=== PATIENT | female | born 1945 | race Caucasian/White ===

== ENCOUNTER 2017-08-16 15:22 | Inpatient (IN) | payer MEDICARE ==
--- NOTE | 2017-08-16 16:56 | CT ---
CT BRAIN WITHOUT CONTRAST: Date: 08/16/17 HISTORY: Hematoma to left eye status post fall. Trauma. FINDINGS: Chronic sinusitis left maxillary sinus. Large left periorbital hematoma. The orbits itself appear to be intact. No retrobulbar hematoma. Calvarium appears to be intact. Moderately advance microangiopathic changes. This involves the subcortical and deep white matter and involves the scott radiata bilaterally. No extra-axial hemorrhage. No intra-axial hemorrhage. No midline shift or mass effect. IMPRESSION: 1. No acute post-traumatic sequelae. 2. Chronic left maxillary sinusitis. 3. Left periorbital hematoma. No orbital abnormalities appreciated. No retrobulbar hematoma. Modera tely advanced microangiopathic changes. POS: [facility]
--- NOTE | 2017-08-16 17:00 | CT ---
CT OF THE CERVICAL SPINE: DATE: 08/16/17. PROVIEED CLINICAL HISTORY: Neck pain status post injury. FINDINGS: There is no evidence for fracture or traumatic subluxation. Advanced multilevel cervical degenerati ve changes are seen. There is no evidence for prevertebral soft tissue swelling. The visualized blank ng apices appear clear. IMPRESSION: No evidence for a fracture or traumatic subluxation. POS: [facility]
--- NOTE | 2017-08-16 17:07 | CT ---
CT OF THE FACIAL BONES: DATE: 08/16/17. PROVIDED CLINICAL HISTORY: Facial trauma. FINDINGS: There is complete opacification of the left maxillary sinus. There is thickening of the anterior an d posterior valdez of the maxillary sinus. This is compatible with changes of chronic sinusitis. Th ere is no evidence for fracture. There is left periorbital soft tissue swelling. The globes and ot her orbital contents appear normal. Degenerative changes are seen involving the cervical spine. IMPRESSION: No evidence for fracture. POS: [facility]
--- NOTE | 2017-08-16 17:11 | RAD ---
TWO VIEWS OF THE LEFT TIBIA AND FIBULA: COMPARISON: None. HISTORY: Fall from standing with left leg pain. FINDINGS: Two views of the left tibia/fibula show a comminuted fracture of the proximal aspect of the tibia. No fibula fracture is seen. Soft tissue swelling is seen. There are moderate to severe degenerativ e changes in the left knee joint. IMPRESSION: 1. Comminuted proximal tibia fracture. 2. Moderate to severe left knee osteoarthritis. POS: [facility]
--- NOTE | 2017-08-16 17:53 | RAD ---
PORTABLE CHEST 1 VIEW: Date: 08/16/17 Time: 1742 hours HISTORY: Preoperative evaluation. FINDINGS/IMPRESSION: The heart size is enlarged. The aorta is tortuous. The lungs are well expanded without confluent are as of consolidation, pneumothorax, christina pulmonary edema, or pleural effusions. POS: [facility]
[2017-08-16 18:05] LABS: #Lymphocytes 0.6 thou/uL (1.20-3.40); #Monocytes 0.9 thou/uL (0.11-0.59); #Neutrophils 15.3 thou/uL (1.40-6.50); %Eosinophils 0.1 % (0.0-10.0); %Lymphocytes 3.8 % (21.0-51.0); %Monocytes 5.5 % (0.0-10.0); Hematocrit 45.4 % (36.0-47.0); Red Blood Cell (RBC) Count 4.82 mill/uL (4.20-5.40); White Blood Cell (WBC) Count 16.9 thou/uL (4.8-10.8)
[2017-08-16 18:11] LABS: Prothrombin Time 14.1 SEC (12.0-14.7)
[2017-08-16 18:29] LABS: ALT (SGPT) 16 U/L (8-55); AST (SGOT) 29 U/L (5-34); Alkaline Phosphatase 103 U/L (40-150); Anion Gap 16 mmol/L (10-20); BUN (Urea Nitrogen) 20 mg/dL (9.8-20.1); Bilirubin, Total 0.7 mg/dL (0.2-1.2); Calc. Creatinine Clearance 0 mL/min (70-130); Calcium 9.9 mg/dL (7.8-10.44); Carbon Dioxide 25 mmol/L (23-31); Chloride 101 mmol/L (98-107); Estimated GFR-MDRD 68; Globulin 3.7 g/dL (2.4-3.5); Lipase 17 U/L (8-78); Protein, Total 7.9 g/dL (6.0-8.3)
[2017-08-16] MEDS ORDERED: Sodium Chloride 0.9% 1,000 ML IV SCH (19:14)
[2017-08-16] MEDS ORDERED: Ondansetron ODT 4 MG TAB SL PRN (19:14)
[2017-08-16] MEDS ORDERED: Ondansetron HCl/PF 4 MG/2 ML Vial IVP PRN ×2 (19:14→19:44)
[2017-08-16] MEDS ORDERED: Fleet Enema 133 ML BOT PR PRN (19:44)
[2017-08-16] MEDS ORDERED: Ondansetron ODT 4 MG TAB PO PRN (19:44)
[2017-08-16] MEDS ORDERED: Bisacodyl 10 MG SUPP PR PRN (19:44)
[2017-08-16] MEDS ORDERED: Milk Of Magnesia 30 ML UDCUP PO PRN (19:44)
[2017-08-16] MEDS ORDERED: Ketorolac Tromethamine 30 MG/ML VIAL IVP SCH (21:45)
[2017-08-16 21:57] VITALS: BMI 30.2
[2017-08-16] MEDS: Docusate 100 MG CAP PO SCH (21:58)
[2017-08-16] MEDS: Ketorolac Tromethamine 30 MG/ML VIAL IVP SCH (21:59)
[2017-08-16] MEDS: risperiDONE 0.25 MG TAB PO SCH (21:59)
[2017-08-16] MEDS: traMADol HCl 50 MG TAB PO PRN (22:01)
[2017-08-17] MEDS: Sodium Chloride 0.9% 1,000 ML IV SCH ×2 (00:16→09:16)
[2017-08-17] MEDS: Ketorolac Tromethamine 30 MG/ML VIAL IVP SCH ×3 (00:18→12:50)
--- NOTE | 2017-08-17 02:34 | CON ---
DATE OF CONSULTATION: 08/16/2017 CHIEF COMPLAINT: Left leg pain. HISTORY OF PRESENT ILLNESS: Ms. Gonsalez is a 72-year-old female who has fallen today. She has a long history of orthopedic problems. She has had a knee fusion on the right knee, she reports. Derrell hernandez has had multiple other surgeries. Her knee fusion was done for infection complications. She has been using a walker for mobilization. She lives at home. She fell in her kitchen today after losin g her balance. She landed on her left side. She was unable to ambulate. She was taken to the [facility]. X-rays were obtained which demonstrated a proximal tibia fracture on the left leg . She is currently comfortable. She is talkative. She has a hematoma over her left eye. PAST MEDICAL HISTORY: Hypertension, otherwise she denies active medical problems. PAST SURGICAL HISTORY: Right knee fusion, multiple right knee surgeries related to infection with p atellectomy. PSYCHIATRIC HISTORY: Depression. SOCIAL HISTORY: The patient denies tobacco, alcohol or drug use. ALLERGIES: No known drug allergies. REVIEW OF SYSTEMS: Positive for left leg pain, otherwise negative for chest pain, shortness of viral th and remainder of 10-point review of systems. PHYSICAL EXAMINATION: VITAL SIGNS: Blood pressure is 143/89, pulse 102, respiratory rate 20, temperature is 98.0. GENERAL: She is alert, sitting upright in no apparent distress. HEENT: The patient has a left eye ecchymosis with swelling. RESPIRATORY: Breathing comfortably. ABDOMEN: Obese. MUSCULOSKELETAL: The left leg has venous stasis with thickened skin and dermatitis. She has a stif f knee with the fusion. There is a deformity of the tibia with varus alignment. She is able flex a nd extend the foot and ankle. Pulses poorly palpable. IMAGES: X-rays of the tibia demonstrate a fracture of the tibial metaphysis. The patient has a sev erely arthritic knee. IMPRESSION: Elderly female with a tibia fracture proximal. PLAN: At this point, I think the patient would be a poor surgical candidate. Her skin is in very p oor condition and she has a severely arthritic knee. I think she would best be treated nonoperative ly with a well-padded splint. I discussed this with her. She will likely need correction placeme nt given that she will be poorly mobile. If her pain worsens or alignment worsens, we could conside r converting to surgical treatment; however, I think she would be higher risk for wound complication or infection. She agrees with this plan and wants to proceed with splinting today.
--- NOTE | 2017-08-17 05:49 | HP ---
Montrell Low PA-C, dictating for Montrell Ward M.D. DATE OF ADMISSION: 08/16/2017 ATTENDING PHYSICIAN: Montrell Ward M.D. CONSULTING PHYSICIAN: Dr. Worthy, Orthopedics. CHIEF COMPLAINT: Evaluation, status post fall. HISTORY OF PRESENT ILLNESS: A 72-year-old female who presented to the ED complaining of left leg pa in and hematoma of the left thigh status post fall. She is on Plavix. The patient was in her kitch en when she was reportedly at the table and did not want to wait for her son for help and then got u p towards her walker and she reports getting wobbly and fell, striking the floor. The patient repor nazanin pain in the left leg from the left thigh. She denied any seizures, able to recall the events pr dede vividly. She denied any chest pain, shortness of breath or dizziness prior to or during the fa ll. REVIEW OF SYSTEMS: All 10 systems were reviewed other than stated in HPI were negative. PAST MEDICAL HISTORY: Includes hypertension, coronary artery disease. PAST SURGICAL HISTORY: Includes right kneecap removal. PSYCHIATRIC HISTORY: Includes depression. SOCIAL HISTORY: She denies any alcohol, drug or smoking history. She does live at home with her so n, but he is not 24 hours in house, so she is alone a large portion of the day. RADIOLOGIC FINDINGS: Showed displaced fracture in comminuted proximal tibia, lower extremity. Head CT and C-spine were negative. PHYSICAL EXAMINATION: VITAL SIGNS: Blood pressure 153/98, heart rate 95, respiratory rate 20, O2 saturation 96% on room a ir. HEENT: Normocephalic, left periorbital ecchymosis and swelling. Pupils equal, round, and reactive. Visual acuity is intact. NECK: No JVD, no masses. Trachea is midline. No cervical spine tenderness. RESPIRATORY: Chest wall is nontender, clear bilaterally via auscultation. CARDIOVASCULAR: S1, S2 regular rate and rhythm. ABDOMEN: Soft, nontender, nondistended, obese. PELVIS: Intact. EXTREMITIES: Tenderness to the left lower leg. Surgery scar to right knee. Lower strength intact. Pulses intact. No edema. NEUROLOGIC: GCS of 15. Cranial nerves intact. SKIN: Warm and dry. LABORATORY DATA: Laboratory results are pending. Radiologic findings as stated above. ASSESSMENT: 1. Status post fall. 2. History of hypertension. 3. History of coronary artery disease. 4. History of depression. 5. Left tibial, proximal, comminuted displaced fracture. PLAN: Orthopedic consultation for left lower leg. The patient will be placed on knee immobilizer a t that time. The patient will optimize pain medication should be n.p.o. after midnight with IV flui ds for possible surgery tomorrow. Dr. Worthy will reevaluate at that time, we will optimize her medically. Initiate deep venous thrombosis and gastritis prophylaxis. The patient has been discuss ed with Dr. Ward at time of dictation and agrees with the above plan.
[2017-08-17] MEDS: Nebivolol HCl 5 MG TAB PO SCH (06:35)
[2017-08-17] MEDS: Lisinopril 10 MG TAB PO SCH (09:12)
[2017-08-17] MEDS: risperiDONE 0.25 MG TAB PO SCH ×2 (09:12→21:21)
[2017-08-17] MEDS: Docusate 100 MG CAP PO SCH ×2 (09:12→21:21)
[2017-08-17] MEDS ORDERED: Chloraseptic Spray 180 ml Bottle PO PRN (13:23)
[2017-08-17] MEDS ORDERED: Ibuprofen 600 MG TAB PO PRN (13:23)
--- NOTE | 2017-08-17 13:45 | RAD ---
LEFT TIBIA FIBULA 2 VIEWS: HISTORY: Splint application, check position of fracture. COMPARISON: Tibia and fibula radiographs of prior day. FINDINGS: Improved alignment post splint of the tibial fracture. Severe degenerative change of the knee joint . IMPRESSION: Good alignment post splinting. POS: [facility]
[2017-08-17] MEDS ORDERED: RISPERIDONE 0.5 MG PO SCH (21:00)
[2017-08-17] MEDS: Atorvastatin Calcium 10 MG TAB PO SCH ×2 (21:20→21:22)
[2017-08-17] MEDS: traMADol HCl 50 MG TAB PO PRN (23:25)
--- NOTE | 2017-08-18 00:54 | PRG-2 ---
DATE OF SERVICE: 08/17/2017 DATE OF ADMISSION: 08/16/2017 SUBJECTIVE: A 72-year-old female with status post fall, found to have a comminuted left tibia fract ure and left hematoma. She reports doing well today. Reports pain has been well controlled at this time. She says she is not eating breakfast today and it has been ordered on its way. She has yet to get up and work with PT and OT. Denies any chest pain, fevers, or chills. Denies any other conc erns or complaints at this time. OBJECTIVE: VITAL SIGNS: Temperature 98.3, pulse 79, respirations 16, O2 sat is 93% on room air, blood pressure is 124/69. GENERAL: She is alert and oriented x3, in no acute distress. HEENT: Normocephalic. She has left periorbital ecchymosis and swelling. RESPIRATORY: Chest wall was nontender. Clear to auscultation bilaterally. No wheeze or crackles. Symmetric chest expansion, nonlabored. CARDIOVASCULAR: Regular rate and rhythm. No murmurs or gallops. ABDOMEN: Soft, nontender, nondistended. EXTREMITIES: Tenderness to left lower leg. Pulses are intact. Moves all extremities upper and low er bilaterally. NEUROLOGIC: No focal neuro deficit. GCS of 15. LABORATORY DATA: No new labs to review today. IMAGING: Tibia and fibula x-ray on 08/17/2017 shows good alignment, post-splinting. ASSESSMENT: 1. Status post fall. 2. History of hypertension. 3. History of coronary artery disease. 4. History of depression. 5. Left tibial proximal comminuted displaced fracture. PLAN: Per Orthopedic Surgery, patient is not a good candidate for surgery. They have splinted and x-ray shows that it has been stabilized. Plan is to consult for shelter or assisted [place] for her. She is agreed to this plan. Now, we will just need to work with case management an d work with insurance to get this approved and we will have her work with PT and OT and await their assessment. We will continue to manage pain and adjust pain medication as needed. We will check la bs as needed and replace electrolytes as needed. The patient was seen and plan of care was discusse d with Dr. Dino Viera.
[2017-08-18] MEDS: Nebivolol HCl 5 MG TAB PO SCH (08:34)
[2017-08-18] MEDS: Docusate 100 MG CAP PO SCH ×2 (08:34→19:32)
[2017-08-18] MEDS: risperiDONE 0.25 MG TAB PO SCH ×2 (08:34→19:31)
[2017-08-18] MEDS: Lisinopril 10 MG TAB PO SCH (08:34)
[2017-08-18] MEDS: traMADol HCl 50 MG TAB PO PRN ×2 (08:35→17:49)
[2017-08-18] MEDS: Acetaminophen 500 MG TAB PO PRN ×2 (13:31→19:35)
--- NOTE | 2017-08-18 16:29 | PRG ---
DATE OF SERVICE: 08/18/2017 SUBJECTIVE: The patient is hospital day #3, status post ground level fall in which she sustained a comminuted left tibia fracture. The patient was evaluated by Orthopedics, and due to her comorbidit ies, it was felt was not a good surgical candidate, so the patient was placed in a hinged knee brace and will be working with physical and occupational therapy. She is currently awaiting rehab placem ent. This morning, she has no complaints. She states that her pain is controlled with Tylenol and Motrin. She is tolerating a diet. OBJECTIVE: VITAL SIGNS: Temperature is 98.0, heart rate 76, blood pressure 103/63, respirations 20, oxygen sat uration 94% on room air. HEENT: Unremarkable. LUNGS: Clear to auscultation bilaterally. HEART: Regular rate and rhythm. ABDOMEN: Soft, flat, nontender with active bowel sounds. EXTREMITIES: Neurovascularly intact x4. LABORATORY DATA: No laboratory or radiographs today. ASSESSMENT AND PLAN: 1. Status post ground-level fall. 2. Proximal left tibia fracture, undergoing nonoperative management. Plan will be to continue pain management, physical and occupational therapy, pain control and await rehabilitation placement.
[2017-08-18] MEDS: Atorvastatin Calcium 10 MG TAB PO SCH (19:32)
[2017-08-19] MEDS: Acetaminophen 500 MG TAB PO PRN (06:50)
[2017-08-19] MEDS: Nebivolol HCl 5 MG TAB PO SCH (08:06)
[2017-08-19] MEDS: risperiDONE 0.25 MG TAB PO SCH ×2 (08:06→21:21)
[2017-08-19] MEDS: Lisinopril 10 MG TAB PO SCH (08:07)
[2017-08-19] MEDS: traMADol HCl 50 MG TAB PO PRN ×2 (08:07→18:18)
[2017-08-19] MEDS: Docusate 100 MG CAP PO SCH ×2 (08:07→21:21)
--- NOTE | 2017-08-19 16:54 | PRG ---
DATE OF SERVICE: 08/19/2017 SUBJECTIVE: The patient is hospital day #4 status post ground level fall in which she sustained a c omminuted left tibia fracture. The patient was evaluated by Orthopedics and it was determined that she was a nonoperative candidate. The patient started working with Physical Therapy yesterday and i s awaiting placement to rehabilitation facility. The patient states that her pain is controlled and she is tolerating a diet. OBJECTIVE: VITAL SIGNS: Temperature is 98.0, heart rate 62, blood pressure 119/66, respirations 18, and oxygen saturation 91% on room air. HEENT: Unremarkable. LUNGS: Clear to auscultation with moderate inspiratory and expiratory effort. HEART: Regular rate and rhythm. ABDOMEN: Soft, flat, and nontender with active bowel sounds. EXTREMITIES: Neurovascularly intact x4. ASSESSMENT AND PLAN: Status post ground level fall in which she sustained a left proximal tibia fra cture that is being managed nonoperatively. 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
[2017-08-19] MEDS ORDERED: Atorvastatin Calcium 10 MG TAB PO SCH (21:30)
[2017-08-20] MEDS: traMADol HCl 50 MG TAB PO PRN ×2 (03:08→12:25)
[2017-08-20 07:52] VITALS: TEMP 98.1
[2017-08-20] MEDS: Nebivolol HCl 5 MG TAB PO SCH ×2 (08:58→08:59)
[2017-08-20] MEDS: Docusate 100 MG CAP PO SCH (08:59)
[2017-08-20] MEDS: risperiDONE 0.25 MG TAB PO SCH (08:59)
[2017-08-20] MEDS: Lisinopril 10 MG TAB PO SCH (08:59)
[2017-08-20 12:22] VITALS: BP 143/76
--- NOTE | 2017-08-20 13:00 | DIS-2 ---
DATE OF ADMISSION: 08/16/2017 DATE OF DISCHARGE: 08/20/2017 RESIDENT: Dr. Ramona Jordan. ATTENDING PHYSICIAN: Dr. Dino Viera. CONSULTATIONS: 1. Orthopedic Surgery, Dr. Alex Worthy. 2. Case management. PROCEDURES: 1. Cervical spine CT: No evidence for fracture or traumatic subluxation. 2. Facial bones CT: No evidence for fracture. 3. Tibia/fibula x-ray: Comminuted proximal tibial fracture, moderate to severe left knee osteoarthritis. 4. Brain CT: No acute post-traumatic sequelae. Chronic left maxillary sinusitis. Left periorbital hematoma. No orbital abnormalities appreciated. No retrobulbar hematoma. Moderately advanced microangiopathic changes. 5. Chest x-ray: The heart size is enlarged. The aorta is tortuous. The lungs are well expanded without confluent areas of consolidation, pneumothorax, or christina pulmonary edema, or pleural effusions. 6. Tibia/fibula x-ray: Status post splint application to check position of fracture. There is good alignment post-splinting. DISCHARGE MEDICATIONS: 1. Acetaminophen 500 mg tablet 1000 mg p.o. q.6 hours as needed for pain. 2. Aspirin 81 mg p.o. daily. 3. Pravastatin sodium 40 mg p.o. daily. 4. Ibuprofen 600 mg p.o. q.8 h. for pain. 5. Tramadol 50 mg p.o. q.6 hours as needed for moderate to severe pain. 6. Clopidogrel bisulfate 75 mg p.o. daily. 7. Furosemide 20 mg p.o. daily. 8. Lisinopril 10 mg p.o. daily. 9. Nebivolol 5 mg p.o. daily. 10. Risperidone 0.5 mg p.o. b.i.d. DISCONTINUED MEDICATIONS: None. HISTORY OF PRESENT ILLNESS/HOSPITAL COURSE: This is a 72-year-old female who presented to the Emergency Department complaining of left leg pain and hematoma of the left thigh, status post fall. Patient was on Plavix. She was in her kitchen when she reportedly did not want to wait for her son to help get her up , so she started moving towards her walker, she got wobbly and fell, striking the floor. The patient reported pain in the left leg in the area of the thigh. She denied any seizures and was able to recall the events vividly. She denied any chest pain, shortness of breath or dizziness prior to or during the fall. Orthopedic Surgery was consulted for evaluation and management of left tibial comminuted fracture as evidenced by a femur/tibia x-ray. The patient was placed in a knee immobilizer and pain control was initiated. Dr. Worthy saw the patient on the day of admission. Upon evaluation, he did not think that the patient was a good surgical candidate as her skin is in very poor condition. Dr. Worthy recommended treatment nonoperatively with a well- padded splint. This was discussed with the patient since the patient will be poorly mobile. It was recommended that she be placed in a short-term nursing facility for maximum recovery. The patient was splinted by Dr. oWrthy, and the alignment of the splint was evaluated via a left tib/fib x-ray. It showed good splinting alignment. The patient remained stable throughout the course of her hospital stay. Her pain was adequately controlled using tramadol, Tylenol and ibuprofen. Patient did not have any complications. She did not require intervention during her hospital stay. Upon reviewing the records, it looks like her pain remained below 5 after the first hospital day. The patient's labs on admission were stable. She did have an elevated white count of 16.9. Otherwise, remainder of the CBC and CMP were within normal limits with the exception of an elevated glucose at 134. PT was 14.1, INR 1.1 and PTT 28. Case management was consulted and they helped on initiating and finding placement for the patient at [facility] where patient will continue with therapy to maximize recovery. She will receive physical therapy and occupational therapy at this facility. Patient is in understanding of this plan and is agreeable. DISCHARGE INSTRUCTIONS: 1. Location: [facility] in [place], [place]. 2. Diet: No restrictions. 3. Activity: As tolerated; orthopedic limitations, patient has left leg splint and decreased mobility secondary to left proximal tibial comminuted fracture. 4. Followup: The patient will be placed in a [place] [facility] at [facility] where she will receive physical therapy and occupational therapy. She will also be seen by physicians at that facility that will help to maximize her care. She will need to follow with her primary care physician, Dr. Zach Woodruff, after discharge from [place] [facility]. Per Dr. Worthy, he would like to see the patient back for reevaluation in 2-3 weeks. MICHELLE
== END 2017-08-20 12:38 | DRG 563 ==
LOC: ERS 15:22 → SJJU 17:20
PROVIDERS: ADMIT Specialist; ATTEND Specialist
PROC: 2W3RX1Z Immobilization of Left Lower Leg using Splint (ICD-10-PCS; principal; 2017-08-16)
DX: S82.102A Unspecified fracture of upper end of left tibia, initial encounter for closed fracture (principal); I10 Essential (primary) hypertension; L30.9 Dermatitis, unspecified; W19.XXXA Unspecified fall, initial encounter; Y92.000 Kitchen of unspecified non-institutional (private) residence as the place of occurrence of the external cause
CPT/HCPCS: 36415; 70450; 70486; 71010; 72125; 80053; 83690; 85025; 85610; 85730; 86850; 86900; 86901; 93005; A4216; G0390; G8978-GP-CM; G8979-GP-CL; G8987-GO-CL; G8988-GO-CJ; J1885

== ENCOUNTER 2018-07-25 18:39 | Emergency (ER) | payer SELFPAY ==
[2018-07-25 19:46] LABS: #Eosinphils 0.2 thou/uL (0.0-0.7); #Lymphocytes 1.6 thou/uL (1.20-3.40); #Monocytes 1.1 thou/uL (0.11-0.59); #Neutrophils 8.3 thou/uL (1.40-6.50); %Basophils 0.3 % (0.0-1.0); %Lymphocytes 14.4 % (21.0-51.0); %Monocytes 9.7 % (0.0-10.0); %Neutrophils 73.6 % (42.0-75.0); Hemoglobin 12.4 g/dL (12.0-16.0); Mean Corpuscular HGB CONC 31.4 g/dL (32.0-36.0); Mean Corpuscular Hemoglobin 27.9 pg (27.0-31.0); Mean Platelet Volume 7.3 fL (7.4-10.4); Platelet Count 296 thou/uL (130-400); RBC Distribution Width 14.6 % (11.5-14.5); Red Blood Cell (RBC) Count 4.42 mill/uL (4.20-5.40); White Blood Cell (WBC) Count 11.2 thou/uL (4.8-10.8)
[2018-07-25 19:53] LABS: INR-International Normal Ratio 1.2; PTT 32.4 SEC (22.9-36.1); Prothrombin Time 15.3 SEC (12.0-14.7)
[2018-07-25 20:06] LABS: ALT (SGPT) 18 U/L (8-55); AST (SGOT) 18 U/L (5-34); Albumin 3.6 g/dL (3.4-4.8); Alkaline Phosphatase 115 U/L (40-150); Anion Gap 14 mmol/L (10-20); BUN (Urea Nitrogen) 20 mg/dL (9.8-20.1); Bilirubin, Total 0.5 mg/dL (0.2-1.2); CK (CPK) 161 U/L (29-168); Calc. Creatinine Clearance 0 mL/min (70-130); Calcium 9.5 mg/dL (7.8-10.44); Carbon Dioxide 24 mmol/L (23-31); Chloride 105 mmol/L (98-107); Estimated GFR-MDRD 82; Globulin 3.5 g/dL (2.4-3.5); Glucose 110 mg/dL (83-110); Potassium 3.3 mmol/L (3.5-5.1); Protein, Total 7.1 g/dL (6.0-8.3); Sodium 140 mmol/L (136-145)
[2018-07-25 20:09] LABS: CKMB 5.3 ng/mL (0-6.6); Troponin I Less than 0.010 ng/mL (< 0.028)
--- NOTE | 2018-07-25 20:27 | CT ---
NONCONTRAST CT HEAD 07/25/18 HISTORY: Fell from standing two days ago and hit head on wall. Bruising to bilateral orbital areas that starte d today. COMPARISON: 08/16/17. FINDINGS: Again noted are mild chronic small vessel ischemic changes and cerebral volume loss not significantly progressed from prior study. There is no evidence of an acute cortical infarction, hemorrhage, mass effect, or midline shift. Ventricular system is normal in size, shape and position. There is bilateral periorbital subcutaneous soft tissue swelling identified. There is also scalp soft tissue swelling seen at the vertex. Again noted is complete opacification of the left maxillary antr um. There is thickening of the valdez of the left maxillary antrum and this may be attributable to chr onic sinusitis. No other interval change. IMPRESSION: 1. No acute intracranial abnormalities demonstrated. 2. Bilateral periorbital subcutaneous soft tissue swelling with scalp hematoma at the vertex. 3. Stable chronic small vessel ischemic changes and cerebral volume loss. POS: [facility]
--- NOTE | 2018-07-25 20:45 | CT ---
NONCONTRAST CT CERVICAL SPINE: 07/25/18 HISTORY: Patient fell two days ago. Now has periorbital bruising and soft tissue swelling. Patient is on Plavi x. Injury after fall. COMPARISON: 08/16/17. TECHNIQUE: Contiguous axial CT images are obtained through the cervical spine from the skull to the level of the T2 vertebral body. Sagittal and coronal reformat images are provided. FINDINGS: Multilevel degenerative changes are again seen throughout the cervical spine greatest at the C2-3, C5 -6 and C6-7 levels where there are prominent end plate degenerative changes and intervertebral disc s paces narrowing at these levels. There is stable slight retrolisthesis of C2 on C3. No fracture is se en involving the cervical spine. Prevertebral soft tissues are within normal limits. CT scan of the c ervical spine is overall stable compared to the prior exam. IMPRESSION: 1. Stable multilevel degenerative changes in the cervical spine without acute fracture or sublux ation seen. 2. Stable slight retrolisthesis of C2 on C3. POS: [facility]
--- NOTE | 2018-07-25 20:57 | CT ---
NONCONTRAST CT SCAN FACIAL BONES: 07/25/18 HISTORY: Fall from standing two days ago and hit head on wall. Periorbital bruising and soft tissue swelling. Patient is on Plavix. COMPARISON: 08/16/17. FINDINGS: There is no evidence of a fracture involving the facial bones. Bilateral periorbital subcutaneous sof t tissue swelling is noted. The orbits are otherwise symmetric and normal in appearance bilaterally. No post septal hematoma or inflammatory changes are identified. Again noted is complete opacification of the left maxillary antrum with increased density material wi thin the left maxillary antrum. This may be related to inspissated secretions or fungal infection. W alls of the left maxillary antrum are thickened which can be seen with chronic sinusitis. Periapical lucencies are again seen involving the posterior bilateral maxillary molars as well as inv olving a right mandibular molar. The periapical lucency involving the right mandibular molar demonstr ates increased periapical lucency compared to the prior study with thinning/absence of the cortex lat erally. Findings are most likely related to periapical abscesses. Degenerative changes are seen in the cervical spine. IMPRESSION: 1. No acute fracture involving the facial bones. 2. Bilateral periorbital subcutaneous soft tissue swelling. 3. Periapical abscesses involving maxillary and mandibular molars. There has been interval worse siria of the periapical lucency/periapical abscess involving the anterior right mandibular molar with thinning/absence of the cortex laterally. 4. Calcifications in the palatine tonsil bilaterally likely related to prior infectious or infla mmatory process. POS: [facility]
[2018-07-25 21:05] LABS: Bilirubin Negative (Negative); Blood, Urine Trace (Negative); Clarity CLEAR (Clear); Glucose, Urine (Dipstick) Negative (Negative); Leukocyte Negative (Negative); Nitrite Negative (Negative); Protein, Urine (Dipstick) Trace mg/dL (Neg-Trace); Specific Gravity, Urine 1.022 (1.002-1.036)
[2018-07-25 21:07] LABS: Bacteria/HPF None Seen HPF (None Seen); Hyaline Casts/LPF 0-3 HYALINE CAST LPF (0-3 Hyaline); Pathc Cast-AUWi Flag 0.58 (0-2.49); Squamous Epithelial 0-3 HPF (0-3); WBC/HPF 0-3 HPF (0-3)
== END 2018-07-25 22:19 | disposition home or self-care (01) ==
LOC: ERS 18:39
DX: S00.12XA Contusion of left eyelid and periocular area, initial encounter (principal); I10 Essential (primary) hypertension; E78.5 Hyperlipidemia, unspecified; F32.9 Major depressive disorder, single episode, unspecified; Z79.891 Long term (current) use of opiate analgesic; Z79.899 Other long term (current) drug therapy; W18.30XA Fall on same level, unspecified, initial encounter
CPT/HCPCS: 36415; 51701; 70450; 70486; 71045; 72125; 80053; 81001; 82553; 83880; 84484; 85025; 85610; 85730; 86850; 86900; 86901; A4353